=== PATIENT | female | born 1930 | race Caucasian/White ===

== ENCOUNTER 2017-05-04 15:20 | Inpatient (IN) | payer OTHER ==
[~2017-05-04] VITALS: Ht 165.1 cm; Wt 50.0 kg
[~2017-05-04 15:20] MED LIST: ATV5 PO; LOSA1TAB38 PO; METO50TA7 PO; MULT-506 PO
--- NOTE | 2017-05-04 15:54 | EMERGENCY ROOM VISIT NOTE ---
History First contact with patient: 15:32 Chief Complaint: DIZZY Stated Complaint: DIZZINESS, UNSTEADY, HIGH BP History of Present Illness The patient is a 86 year old female who presents to the Emergency Room with complaints of unsteadiness on her feet. Her symptoms started when she woke up on Tuesday. It is worse when she is up and walking around. She feels she is falling more to the left side. She denies any dizziness, light headedness or room spinning. She improves when she sits down and is only occurring when she is walking. She denies any weakness or change in sensation in her upper or lower limbs. She denies any change in her speech, hearing or vision. She is right handed. She feels much increased stress after having a cystoscopy on Tuesday and showing recurrence of her bladder cancer with three small lesions but reports her symptoms did not start until the following day. She denies any diabetes, smoking history, previous stroke or heart attack. She takes lorazepam at night, reports no increase in dose or extra doses of this recently to explain her symptoms. She denies any fevers, chills, recent infections, nasal congestion, cough, shortness of breath, chest pain, palpitations, abdominal pain, nausea, vomiting , diarrhea or constipation. 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 Review of Systems All systems reviewed and otherwise negative other than HPI Past Medical/Surgical History Medical Problems: (1) Bladder tumor (2) BRIANNA (generalized anxiety disorder) (3) HTN (hypertension) Sigmoid volvulus PSHx Sigmoidectomy Family History Patient reports no known family medical history. Social History Smoking Status: Never Smoker Alcohol Use: none Marital Status: Housing Status: lives with significant other Occupation Status: retired Current/Historical Medications Scheduled Losartan Potassium (Cozaar), 100 MG PO QAM Metoprolol Succ (Toprol Xl) (Toprol-Xl), 50 MG PO QAM Scheduled PRN Docusate Sodium (Docusate Sodium), 1 CAP PO BID PRN for Constipation Physical Exam Vital Signs Date Time Temp Pulse Resp B/P (MAP) Pulse Ox O2 Delivery O2 Flow Rate FiO2 05/04/17 17:05 73 05/04/17 16:59 69 18 167/97 95 Room Air 05/04/17 15:28 80 20 182/98 96 Room Air Physical Exam General Appearance: WD/WN, no apparent distress Head: normocephalic, atraumatic Eyes: normal inspection, PERRL, EOMI, sclerae normal, + pertinent finding ( mild droop of left eyelid) ENT: normal ENT inspection (external), pharynx normal (moist mucus membranes ) Neck: supple, no adenopathy, no JVD, no carotid bruits, trachea midline Respiratory/Chest: chest non-tender, lungs clear, normal breath sounds, no respiratory distress, no accessory muscle use Cardiovascular: regular rate, rhythm, no edema, no murmur, normal peripheral pulses Abdomen / GI: normal bowel sounds, non tender, soft, + distended ( chronically) Back: no CVA tenderness Extremities: no calf tenderness, normal capillary refill, no pedal edema Neurologic/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 Hypertension. Loss of balance. COMPARISON STUDY: No priors. TECHNIQUE: Unenhanced axial CT scan of the brain is performed from the vertex to the skull base. CT DOSE: 776.86 mGycm FINDINGS: Brain parenchyma: There are age-related involutional changes noting moderate confluent subcortical and periventricular microangiopathic change. There is no hemorrhage, mass effect, or evidence of acute territorial ischemia by CT criteria. Aviles-white matter is preserved. No extra-axial fluid collection is seen. Ventricles, sulci, cisterns: Prominent secondary to involutional change. Intracranial vasculature: There is atherosclerotic calcification of the cavernous carotid vertebral arteries. Calvarium: Unremarkable. Sinuses and mastoids: The visualized paranasal sinuses are clear. The mastoid air cells are well pneumatized. Orbits: The bony orbits are grossly intact. There are bilateral ocular lens implants. IMPRESSION: Senescent changes as above with no hemorrhage, mass effect, or evidence of acute territorial ischemia by CT criteria. Electronically signed by: Kamar Thomas M.D. 05/04/2017 4:55 PM Dictated Date/Time: 05/04/2017 4:53 PM Laboratory Results 05/04/17 15:40 Red Blood Count 4.45, Mean Corpuscular Volume 94.2, Mean Corpuscular Hemoglobin 31.7, Mean Corpuscular Hemoglobin Concent 33.7, Mean Platelet Volume 10.7, Neutrophils (%) (Auto) 64.8, Lymphocytes (%) (Auto) 24.4, Monocytes (%) (Auto) 9.7, Eosinophils (%) (Auto) 0.2, Basophils (%) (Auto) 0.7, Neutrophils # (Auto) 3.66, Lymphocytes # (Auto) 1.38, Monocytes # (Auto) 0.55, Eosinophils # (Auto) 0.01, Basophils # (Auto) 0.04 05/04/17 15:40 Test 05/04/17 15:40 05/04/17 17:45 White Blood Count 5.65 K/uL (4.8-10.8) Red Blood Count 4.45 M/uL (4.2-5.4) Hemoglobin 14.1 g/dL (12.0-16.0) Hematocrit 41.9 % (37-47) Mean Corpuscular Volume 94.2 fL (80-100) Mean Corpuscular Hemoglobin 31.7 pg (25-34) Mean Corpuscular Hemoglobin Concent 33.7 g/dl (32-36) Platelet Count 205 K/uL (130-400) Mean Platelet Volume 10.7 fL (7.4-10.4) Neutrophils (%) (Auto) 64.8 % Lymphocytes (%) (Auto) 24.4 % Monocytes (%) (Auto) 9.7 % Eosinophils (%) (Auto) 0.2 % Basophils (%) (Auto) 0.7 % Neutrophils # (Auto) 3.66 K/uL (1.4-6.5) Lymphocytes # (Auto) 1.38 K/uL (1.2-3.4) Monocytes # (Auto) 0.55 K/uL (0.11-0.59) Eosinophils # (Auto) 0.01 K/uL (0-0.5) Basophils # (Auto) 0.04 K/uL (0-0.2) RDW Standard Deviation 47.5 fL (36.4-46.3) RDW Coefficient of Variation 13.9 % (11.5-14.5) Immature Granulocyte % (Auto) 0.2 % Immature Granulocyte # (Auto) 0.01 K/uL (0.00-0.02) Anion Gap 8.0 mmol/L (3-11) Estimated GFR () 70.4 Estimated GFR (Non- 60.7 BUN/Creatinine Ratio 17.1 (10-20) Calcium Level 9.0 mg/dl (8.5-10.1) Total Bilirubin 0.3 mg/dl (0.2-1) Aspartate Amino Transf (AST/SGOT) 23 U/L (15-37) Alanine Aminotransferase (ALT/SGPT) 20 U/L (12-78) Alkaline Phosphatase 105 U/L (45-117) Troponin I < 0.015 ng/ml (0-0.045) Total Protein 7.3 gm/dl (6.4-8.2) Albumin 3.3 gm/dl (3.4-5.0) Globulin 4.0 gm/dl (2.5-4.0) Albumin/Globulin Ratio 0.8 (0.9-2) Urine Color YELLOW Urine Appearance CLEAR (CLEAR) Urine pH 7.5 (4.5-7.5) Urine Specific [place] 1.011 (1.000-1.030) Urine Protein NEG (NEG) Urine Glucose (UA) NEG (NEG) Urine Ketones NEG (NEG) Urine Occult Blood NEG (NEG) Urine Nitrite NEG (NEG) Urine Bilirubin NEG (NEG) Urine Urobilinogen NEG (NEG) Urine Leukocyte Esterase NEG (NEG) Urine WBC (Auto) 0 /hpf (0-5) Urine RBC (Auto) 0-4 /hpf (0-4) Urine Hyaline Casts (Auto) 0 /lpf (0-5) Urine Epithelial Cells (Auto) 5-10 /lpf (0-5) Urine Bacteria (Auto) NEG (NEG) Medications Administered Medications (Trade) Dose Ordered Sig/Claude Route Start Time Stop Time Status Last Admin Dose Admin Aspirin (Aspirin Chew) 81 mg ONE STAT PO 05/04/17 17:19 05/04/17 17:24 DC 05/04/17 18:26 81 MG ECG Indication: altered mental status Rate (beats per minute): 67 Rhythm: normal sinus Findings: left axis deviation Comparison ECG Date: 10 Jul 2009 Change: Increase in QRS duration, poor R wave progression and J point elevation in V2 without reciprocal changes ED Course 15:45 Reviewed triage and previous notes. The patient was assessed in room C2. Complete history and physical was performed by myself. 16:[address] Bateman who separately performed history and physical - advised adding troponin to labs 17:19 [facility]A Medical Decision Prior records/ancillary studies reviewed and summarized above. Nursing notes reviewed. Additional history obtained from patient. The patient's history was concerning for loss of balance. Differential diagnosis: Etiologies such as metabolic, infection, hypo/hyperglycemia, electrolyte abnormalities, cardiac sources, intracerebral event, toxicologic, neurologic, as well as others were entertained. Physical examination: As above. ER treatment provided: Aspirin was provided after CT head was obtained On reassessment the patient felt the same - finger-nose past pointing had improved. Diagnostics interpretation by me: ECG: increased QRS duration, J point elevation in V2 without reciprocal changes , new since 2009 and absence of chest pain or shortness of breath The labs showed an elevated glucose 196 (not known to be diabetic) but were otherwise unremarkable with negative troponin Imaging studies: CT head showed no acute changes Urine was negative for infection Consultation: [facility] to concern for [facility]. The case was discussed and diagnostics were reviewed. The patient was evaluated in the ER for further treatment. The patient and her partner were informed about the findings as listed above. All questions were answered and they pleased with the treatment. Medication Reconcilliation Current Medication List: was personally reviewed by me Blood Pressure Screening Patient's blood pressure: Elevated blood pressure refer to hospitalist, not treated in the context of possible stroke Consults Time Called: 17:16 [facility] Call: 17:19 Impression Primary Impression: CVA (cerebral vascular accident) Additional Impression: HTN (hypertension) Departure Information Dispostion Being Evaluated By Hospitalist Condition GOOD Referrals Tonia Carvalho M.D. (PCP) Patient Instructions My [facility] Resident Tracking Resident Involvement: Resident Care Provided Care Provided: Adult ED Problem Qualifiers Primary Impression: CVA (cerebral vascular accident) CVA mechanism: unspecified Qualified Codes: I63.9 - Cerebral infarction, unspecified Additional Impression: HTN (hypertension) Hypertension type: essential hypertension Qualified Codes: I10 - Essential ( primary) hypertension
[2017-05-04 16:18] LABS: BASO % 0.7 %; BASO ABS # 0.04 K/uL (0-0.2); EOS % 0.2 %; EOS ABS # 0.01 K/uL (0-0.5); HEMATOCRIT 41.9 % (37-47); HEMOGLOBIN 14.1 g/dL (12.0-16.0); IG# 0.01 K/uL (0.00-0.02); LYMPH % 24.4 %; LYMPH ABS # 1.38 K/uL (1.2-3.4); MEAN CELL VOLUME 94.2 fL (80-100); MEAN CORPUSCULAR HEMOGLOBIN 31.7 pg (25-34); MEAN CORPUSCULAR HGB CONC 33.7 g/dl (32-36); MEAN PLATELET VOLUME 10.7 fL (7.4-10.4); MONO % 9.7 %; MONO ABS # 0.55 K/uL (0.11-0.59); NEUT % 64.8 %; NEUT ABS # 3.66 K/uL (1.4-6.5); PLATELET COUNT 205 K/uL (130-400); RED CELL DISTRIBUTION WIDTH CV 13.9 % (11.5-14.5); RED CELL DISTRIBUTION WIDTH SD 47.5 fL (36.4-46.3); WHITE BLOOD COUNT 5.65 K/uL (4.8-10.8)
--- NOTE | 2017-05-04 16:25 | DIAGNOSTIC IMAGING REPORT ---
CHEST ONE VIEW PORTABLE CLINICAL HISTORY: loss of balance ?infection dyspnea COMPARISON STUDY: No previous studies for comparison. FINDINGS: Mild emphysematous change. Mild cardia megaly. Diaphragms smooth. Lungs are clear. IMPRESSION: No acute process. Mild emphysematous change. The above report was generated using voice recognition software. It may contain grammatical, syntax or spelling errors. Electronically signed by: Obi Sinclair M.D. 05/04/2017 4:24 PM Dictated Date/Time: 05/04/2017 4:23 PM
[2017-05-04 16:29] LABS: ALBUMIN 3.3 gm/dl (3.4-5.0); ALT/SGPT 20 U/L (12-78); BLOOD UREA NITROGEN 15 mg/dl (7-18); CARBON DIOXIDE 24 mmol/L (21-32); CREATININE 0.86 mg/dl (0.60-1.20); GLUCOSE 196 mg/dl (70-99); POTASSIUM 3.7 mmol/L (3.5-5.1); SODIUM 137 mmol/L (136-145)
[2017-05-04 16:32] LABS: ALKALINE PHOSPHATASE 105 U/L (45-117); AST/SGOT 23 U/L (15-37); TOTAL PROTEIN 7.3 gm/dl (6.4-8.2)
--- NOTE | 2017-05-04 16:56 | DIAGNOSTIC IMAGING REPORT ---
CT SCAN OF THE BRAIN WITHOUT IV CONTRAST CLINICAL HISTORY: Dizziness. Hypertension. Loss of balance. COMPARISON STUDY: No priors. TECHNIQUE: Unenhanced axial CT scan of the brain is performed from the vertex to the skull base. CT DOSE: 776.86 mGycm FINDINGS: Brain parenchyma: There are age-related involutional changes noting moderate confluent subcortical and periventricular microangiopathic change. There is no hemorrhage, mass effect, or evidence of acute territorial ischemia by CT criteria. Aviles-white matter is preserved. No extra-axial fluid collection is seen. Ventricles, sulci, cisterns: Prominent secondary to involutional change. Intracranial vasculature: There is atherosclerotic calcification of the cavernous carotid vertebral arteries. Calvarium: Unremarkable. Sinuses and mastoids: The visualized paranasal sinuses are clear. The mastoid air cells are well pneumatized. Orbits: The bony orbits are grossly intact. There are bilateral ocular lens implants. IMPRESSION: Senescent changes as above with no hemorrhage, mass effect, or evidence of acute territorial ischemia by CT criteria. Electronically signed by: Kamar Thomas M.D. 05/04/2017 4:55 PM Dictated Date/Time: 05/04/2017 4:53 PM
[2017-05-04] MEDS ORDERED: ASPIRIN 81 MG CHEW PO STA (17:19)
[2017-05-04] MEDS ORDERED: ONDANSETRON INJ 2 MG/ML 2 ML VIAL IV PRN (18:30)
[2017-05-04] MEDS ORDERED: ACETAMINOPHEN 325 MG TAB PO PRN (18:30)
[2017-05-04] MEDS ORDERED: PHARMACIST DISCHARGE MED REC CONSULT PRN (18:30)
[2017-05-04] MEDS ORDERED: DOCU100C31 PO (18:34)
[2017-05-04] MEDS ORDERED: CLONIDINE HCL 0.1 MG TAB PO PRN (18:45)
[2017-05-04 19:30] VITALS: BP_SYST 136; BP_SYST 170; BP_DIAS 105; BP_DIAS 109; PULSE 81; TEMP 36.5; TEMP 36.9; O2SAT 96; Ht 165.1 cm; Wt 50.0 kg
--- NOTE | 2017-05-04 19:32 | EMERGENCY ROOM VISIT NOTE ---
ED Visit Note First contact with patient: 15:32 I have personally evaluated this patient examined her and reviewed the pertinent labs and data. I have discussed the case with the Dr. Thapa, the resident physician and agree with the plan. Please refer to the PA note. This patient comes in after feeling weak since Tuesday. On exam, she seems have decreased coordination of her left arm and been having difficulty walking and feels dizzy. EKG does not suggest any ischemic changes. CAT scan of her head is unremarkable. She's had no significant electrode or metabolic abnormality. Given her presentation, IM still concerned about a neurologic process or CVA. She is well outside the window for any TPA. I do think she needs to be admitted for further treatment and evaluation. We have consulted the admitting team.
--- NOTE | 2017-05-04 19:44 | History and Physical ---
History & Physical Date & Time of Service: May 04, 2017 at 19:11 Chief Complaint: Dizziness, Unsteady, High Bp Primary Care Physician: Tonia Carvalho M.D. History of Present Illness Source: patient, spouse (at bedside), clinic records, hospital records This is a 86yo F with a PMH of HTN, anxiety and bladder cancer (s/p complete [place] [facility] [place]) who presents with an unsteady gait x 2 days. Patient was diagnosed with a left trigone tumor with hydroureter in 2015, which was resected in 05/14 and again in 07/16. Per Dr. Rizvi' urology note, patient had a surveillance cystoscopy this past Tuesday (05/02/17) that showed 3-4 small recurrent tumors. Has agreed to move forward with biopsy and fulguration of tumors with Dr. Rizvi. Since finding out the results of the cystoscopy, patient endorses increased anxiety over the results. Is prescribed 0.5mg ativan BID for anxiety but states that she has only been taking it before bed, which she has for years. Yesterday, patient started to feel "unsteady" while walking and noticed herself leaning to the left. States that she required her 's help ambulating yesterday and today in order to avoid falling. Endorses associated lightheadedness but denies headache, facial droop, difficulty with speech, weakness in extremities. Denies personal history of CVA or heart disease. Past Medical/Surgical History Medical Problems: (1) Bladder tumor Permanent Comment: Resected in Jun 2016 but recent surveillance cystoscopy with small recurrent tumors Status: Chronic (2) BRIANNA (generalized anxiety disorder) Status: Chronic (3) HTN (hypertension) Status: Chronic Family History Reports no known history of cancers. Social History Smoking Status: Never Smoker Alcohol Use: none Marital Status: Housing status: lives with significant other Occupational Status: retired Immunizations History of Influenza Vaccine: Yes History of Tetanus Vaccine?: Yes History of Pneumococcal: Yes History of Hepatitis B Vaccine: No Multi-Drug Resistant Organisms History of MDRO: No Allergies Coded Allergies: Penicillins (Verified Allergy, Unknown, INJECTION ONLY - SWELLING, 05/04/17 ) Sulfa Drugs (Verified Allergy, Unknown, UNKNOWN, 05/04/17) Doesn't remember when she took last or what reaction was Lactose Intolerance (GI) (Verified Adverse Reaction, Unknown, G I UPSET,, 05/04/17) Vinegar (Verified Adverse Reaction, Unknown, GI UPSET, 05/04/17) Home Medications Scheduled Losartan Potassium (Cozaar), 100 MG PO QAM Metoprolol Succ (Toprol Xl) (Toprol-Xl), 50 MG PO QAM Scheduled PRN Docusate Sodium (Docusate Sodium), 1 CAP PO BID PRN for Constipation Review of Systems Ten systems reviewed and negative except as noted in the HPI. Physical Exam Vital Signs Date Time Temp Pulse Resp B/P (MAP) Pulse Ox O2 Delivery O2 Flow Rate FiO2 05/04/17 18:30 36.9 05/04/17 17:05 73 05/04/17 16:59 69 18 167/97 95 Room Air 05/04/17 15:28 80 20 182/98 96 Room Air General Appearance: no apparent distress, + mild distress (anxious appearing) Head: normocephalic, atraumatic Eyes: normal inspection, PERRL, sclerae normal ENT: normal ENT inspection, TMs normal (Ceruman impaction of L ear. 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, no motor/sensory deficits (Full ROM of all 4 extremities, 5/5 NISHA, normal [id number] and rapid alternating movements ), alert, normal mood/affect, oriented x 3, + abnormal gait (Left leaning and unsteady ) Skin: normal color, warm/dry Diagnostics Laboratory Results Results Past 24 Hours Test 05/04/17 15:40 05/04/17 17:45 Range/Units White Blood Count 5.65 4.8-10.8 K/uL Red Blood Count 4.45 4.2-5.4 M/uL Hemoglobin 14.1 12.0-16.0 g/dL Hematocrit 41.9 37-47 % Mean Corpuscular Volume 94.2 80-100 fL Mean Corpuscular Hemoglobin 31.7 25-34 pg Mean Corpuscular Hemoglobin Concent 33.7 32-36 g/dl Platelet Count 205 130-400 K/uL Mean Platelet Volume 10.7 7.4-10.4 fL Neutrophils (%) (Auto) 64.8 % Lymphocytes (%) (Auto) 24.4 % Monocytes (%) (Auto) 9.7 % Eosinophils (%) (Auto) 0.2 % Basophils (%) (Auto) 0.7 % Neutrophils # (Auto) 3.66 1.4-6.5 K/uL Lymphocytes # (Auto) 1.38 1.2-3.4 K/uL Monocytes # (Auto) 0.55 0.11-0.59 K/uL Eosinophils # (Auto) 0.01 0-0.5 K/uL Basophils # (Auto) 0.04 0-0.2 K/uL RDW Standard Deviation 47.5 36.4-46.3 fL RDW Coefficient of Variation 13.9 11.5-14.5 % Immature Granulocyte % (Auto) 0.2 % Immature Granulocyte # (Auto) 0.01 0.00-0.02 K/uL Sodium Level 137 136-145 mmol/L Potassium Level 3.7 3.5-5.1 mmol/L Chloride Level 105 98-107 mmol/L Carbon Dioxide Level 24 21-32 mmol/L Anion Gap 8.0 3-11 mmol/L Blood Urea Nitrogen 15 7-18 mg/dl Creatinine 0.86 0.60-1.20 mg/dl Estimated GFR () 70.4 Estimated GFR (Non- 60.7 BUN/Creatinine Ratio 17.1 10-20 Random Glucose 196 70-99 mg/dl Calcium Level 9.0 8.5-10.1 mg/dl Total Bilirubin 0.3 0.2-1 mg/dl Aspartate Amino Transf (AST/SGOT) 23 15-37 U/L Alanine Aminotransferase (ALT/SGPT) 20 12-78 U/L Alkaline Phosphatase 105 45-117 U/L Troponin I < 0.015 0-0.045 ng/ml Total Protein 7.3 6.4-8.2 gm/dl Albumin 3.3 3.4-5.0 gm/dl Globulin 4.0 2.5-4.0 gm/dl Albumin/Globulin Ratio 0.8 0.9-2 Urine Color YELLOW Urine Appearance CLEAR CLEAR Urine pH 7.5 4.5-7.5 Urine Specific [place] 1.011 1.000-1.030 Urine Protein NEG NEG Urine Glucose (UA) NEG NEG Urine Ketones NEG NEG Urine Occult Blood NEG NEG Urine Nitrite NEG NEG Urine Bilirubin NEG NEG Urine Urobilinogen NEG NEG Urine Leukocyte Esterase NEG NEG Urine WBC (Auto) 0 0-5 /hpf Urine RBC (Auto) 0-4 0-4 /hpf Urine Hyaline Casts (Auto) 0 0-5 /lpf Urine Epithelial Cells (Auto) 5-10 0-5 /lpf Urine Bacteria (Auto) NEG NEG Diagnostic Radiology CT head: IMPRESSION: Senescent changes as above with no hemorrhage, mass effect , or evidence of acute territorial ischemia by CT criteria. CXR: IMPRESSION: No acute process. Mild emphysematous change. EKG Normal sinus rhythm Left axis deviation Non-specific intra-ventricular conduction block (QRS interval slightly prolonged at 130 ms) Abnormal ECG When compared with ECG of 10-JUL-2009 16:08, Questionable change in QRS duration Impression Assessment and Plan This is a 86yo F with a PMH of HTN, anxiety and bladder cancer (s/p complete resection @ [facility] [place] in 07[place]) who presents with an unsteady gait x 2 days. Ataxic gait: -Left leaning, unsteadiness x 2 days -No other neuro abnormalities -Fall precautions -CT head negative -Rule out acute CVA: -MRI brain without contrast -Carotid dopplers -Neuro consulted. Appreciate recs -Given aspirin in ER -Fasting lipid panel, hgb a1c in AM -Initiate statin if indicated -Neuro checks Q4 -PT/OT/speech eval Bladder cancer: -S/p complete resection @ [facility] [place] in 07/16 -Recent surveillance cysto (05/02/17) with Dr. Rizvi revealed 3-4 small recurrent tumors -Planning on a biopsy with fulguration as well as staging CT scan HTN: -Elevated likely 2/2 anxiety -Cont home dose metoprolol and losartan -Clonidine 0.1mg Q8 PRN for SBP > 170 -Monitor BRIANNA: -Held home dose ativan in setting of ataxia, unsteady gait DVT Ppx: SCDs (held off on pharmacologic VTE due to fall risk; please initiate tomorrow) Code status: DNR as per my discussion with patient and PCP: Deven Dispo: Discharge planning per stroke set protocol Patient seen in collaboration with Dr. Ramos. Please see addendum. ATTENDING ADDENDUM care coordinated with SERENITY Quinonez please refer to her notes for full details, I agree with her notes patient seen and examined, records reviewed by myself as well on exam, patient seen laying in bed, just cam from the MRI alert, bright, in good spirits denies focal neuro symptoms no chest pain, dyspnea, dizziness no other symptoms VS noted and reviewed oriented x3 , not in distress, speaks in sentences with no effort nor accessory muscle use normal rate, regular rhythm, no murmurs clear breath sounds bilaterally non distended, soft, nontender no bipedal edema, erythema, warmth CN 2-12 grossly intact, motor 5/5 on all ext, sensation 100% on all ext WBC 5.6 Hg [address] head no acute process ASSESSMENT/PLAN> EPISODE OF ATAXIA, R/O ACUTE CVA - CT head negative Brain MRI , Carotid US ordered - already received ASA in the ER Neurology consulted HYPERTENSION - continue Losartan, Metoprolol other diagnoses and plan of care as per SERENITY Quinonez's notes Octaviano Ramos MD Level of Care Telemetry Resuscitation Status DO NOT RESUSCITATE VTE Prophylaxis VTE Risk Assessment Done? Y/N: Yes Risk Level: Moderate Given or contraindicated: SCD's
--- NOTE | 2017-05-04 22:19 | DIAGNOSTIC IMAGING REPORT ---
ULTRASOUND OF THE CAROTID ARTERIES CLINICAL HISTORY: Strokelike symptoms. COMPARISON STUDY: No priors. TECHNIQUE: Real-time, grayscale, and color Doppler sonography of the carotid arteries is performed. Images are reviewed in the transverse and longitudinal planes. FINDINGS: Blood pressure in the right arm measures 134/77 and blood pressure in the left arm measures 146/81. The carotid arteries are patent bilaterally and demonstrate antegrade flow. There is no significant atherosclerotic plaque identified. Normal doppler arterial waveforms are seen throughout. Velocity measurements are listed below. Common carotid peak systolic velocity (cm/sec): RIGHT: 123 LEFT: 88 ICA proximal peak systolic velocity (cm/sec): RIGHT: 41 LEFT: 37 ICA mid peak systolic velocity (cm/sec): RIGHT: 62 LEFT: 44 ICA distal peak systolic velocity (cm/sec): RIGHT: 44 LEFT: 54 ICA/CC peak systolic ratio: RIGHT: 0.5 LEFT: 0.6 Antegrade flow was shown in the vertebral arteries. The external carotid arteries are patent. IMPRESSION: 1. There is no sonographic evidence of hemodynamically significant stenosis in the right or left carotid arterial system. 2. Antegrade flow is shown in the vertebral arteries. Electronically signed by: Kamar Thomas M.D. 05/04/2017 10:18 PM Dictated Date/Time: 05/04/2017 10:17 PM
--- NOTE | 2017-05-04 22:56 | DIAGNOSTIC IMAGING REPORT ---
MRI OF THE BRAIN WITHOUT IV CONTRAST CLINICAL HISTORY: Strokelike symptoms. COMPARISON STUDY: CT of the brain dated 05/04/2017. TECHNIQUE: MRI of the brain was performed utilizing various T1 and T2-weighted sequences in the axial, sagittal, and coronal planes. IV contrast was not administered for this examination. FINDINGS: Brain parenchyma: There are age-related involutional changes noting advanced confluent subcortical and periventricular microangiopathic disease. There is no hemorrhage or mass effect. There is no restricted diffusion to suggest acute ischemia. Aviles-white matter differentiation is preserved. No extra-axial fluid collection is seen. The cerebellar tonsils are normal in configuration. Ventricles, sulci, and cisterns: Prominent secondary to involutional change. Pituitary and sella: Unremarkable. Intracranial vasculature: Normal flow voids are maintained at the skull base. Orbits: The bony orbits are grossly intact. Orbital contents are normal in appearance noting bilateral ocular lens implants. Sinuses and mastoids: Clear. Calvarium: Unremarkable. Cervical cord: Partially visualized cervical spinal cord is normal in morphology and signal intensity. IMPRESSION: Senescent changes as above with no acute intracranial abnormality. Electronically signed by: Kamar Thomas M.D. 05/04/2017 10:55 PM Dictated Date/Time: 05/04/2017 10:53 PM
[2017-05-05] VITALS (10 sets, daily range): BP systolic 111–174; BP diastolic 73–93; PULSE 71–86; TEMP 36.3–36.7; O2SAT 93–97
[2017-05-05 07:16] LABS: HEMOGLOBIN A1C 5.7 % (4.5-5.6)
[2017-05-05 07:51] LABS: BASO % 0.7 %; BASO ABS # 0.04 K/uL (0-0.2); EOS % 1.1 %; EOS ABS # 0.07 K/uL (0-0.5); HEMATOCRIT 41.3 % (37-47); HEMOGLOBIN 13.9 g/dL (12.0-16.0); IG# 0.01 K/uL (0.00-0.02); LYMPH % 43.2 %; LYMPH ABS # 2.65 K/uL (1.2-3.4); MEAN CORPUSCULAR HEMOGLOBIN 31.3 pg (25-34); MEAN CORPUSCULAR HGB CONC 33.7 g/dl (32-36); MEAN PLATELET VOLUME 10.4 fL (7.4-10.4); MONO % 10.1 %; MONO ABS # 0.62 K/uL (0.11-0.59); NEUT % 44.7 %; NEUT ABS # 2.74 K/uL (1.4-6.5); PLATELET COUNT 206 K/uL (130-400); RED CELL DISTRIBUTION WIDTH CV 13.8 % (11.5-14.5); RED CELL DISTRIBUTION WIDTH SD 47.4 fL (36.4-46.3); WHITE BLOOD COUNT 6.13 K/uL (4.8-10.8)
[2017-05-05] MEDS: ASPIRIN 81 MG ECTAB PO SCH (08:01)
[2017-05-05] MEDS: METOPROLOL SUCC 50MG EXT REL TAB PO SCH (08:02)
[2017-05-05] MEDS: LOSARTAN POTASSIUM 50 MG TAB PO SCH (08:02)
[2017-05-05 08:18] LABS: CREATININE 0.72 mg/dl (0.60-1.20); POTASSIUM 3.6 mmol/L (3.5-5.1)
[2017-05-05] MEDS ORDERED: LORAZEPAM 0.5 MG TAB PO PRN (18:00)
--- NOTE | 2017-05-05 18:10 | Progress Note ---
Internal Med Progress Note Date of Service: May 05, 2017. Provider Documentation: SUBJECTIVE: sebastian says since yesterday she was feeling dizzy and was leaning to left side while ambulating recently she found her bladder tumor has recurrence which let her down says she did not slept last night and asking some med to help sleep- she is used to Ativan but wants something less stronger as she thinks ativan was causing current problem denies any chest pain or sob no cough no fevers OBJECTIVE: Vital Signs-as noted below Exam: General-alert and awake and oriented ENT-normal hearing Neck-no neck masses Lungs-cta b/l no wheezing no rhonchi Heart-s1 and s2 heard regular rate and rhythm no murmurs Abdomen-soft BS present non tender no distension Extremities-no edema no erythema Neuro-alert and awake moves extremities Lab data as noted below. ASSESSMENT & PLAN: This is a 86yo F with a PMH of HTN, anxiety and bladder cancer [place] [facility] [place] who presents with an unsteady gait x 2 days. Ataxic gait: Left leaning, unsteadiness x [address] head negative MRI head unremarkable orthostatics carotid doppler unremarkable await echo currently stable pt/ot await neuro inputs Bladder cancer: As pr h and P"S/p [place] [facility] [place] Recent surveillance cysto (05/02/17) with Dr. Rizvi revealed 3-4 small recurrent tumors Planning on a biopsy with fulguration as well as staging CT scan" followup with urology HTN: on home dose metoprolol and losartan Clonidine 0.1mg Q8 PRN for SBP > 170 will Monitor BRIANNA: at admission Held home dose ativan in setting of ataxia, unsteady gait will place on ativan prn for ow and monitor DVT Ppx: SCDs Code status: DNR as per H and P. PCP: Mainali Dispo:to be determined Vital Signs: Date Time Temp Pulse Resp B/P (MAP) Pulse Ox O2 Delivery O2 Flow Rate FiO2 05/05/17 16:27 94 Room Air 05/05/17 13:39 36.7 86 18 145/88 (107) 94 Room Air 05/05/17 12:00 Room Air 05/05/17 11:59 36.5 77 20 148/80 (102) 96 Room Air 05/05/17 11:39 36.7 71 16 93 05/05/17 08:04 36.7 71 16 154/93 (113) 93 Room Air 05/05/17 08:00 Room Air 05/05/17 05:21 150/87 (108) 05/05/17 04:24 36.5 74 15 174/88 (116) 97 Room Air 05/05/17 04:00 Room Air 05/05/17 00:00 36.6 74 157/87 (110) 94 Room Air 05/05/17 00:00 94 Room Air 05/04/17 19:30 36.5 81 20 170/105 (126) 96 Room Air 05/04/17 19:30 36.9 16 136/109 Room Air 05/04/17 19:17 86 16 136/109 96 05/04/17 18:30 36.9 Lab Results: Results Past 24 Hours Test 05/05/17 07:38 05/05/17 17:04 Range/Units White Blood Count 6.13 4.8-10.8 K/uL Red Blood Count 4.44 4.2-5.4 M/uL Hemoglobin 13.9 12.0-16.0 g/dL Hematocrit 41.3 37-47 % Mean Corpuscular Volume 93.0 80-100 fL Mean Corpuscular Hemoglobin 31.3 25-34 pg Mean Corpuscular Hemoglobin Concent 33.7 32-36 g/dl Platelet Count 206 130-400 K/uL Mean Platelet Volume 10.4 7.4-10.4 fL Neutrophils (%) (Auto) 44.7 % Lymphocytes (%) (Auto) 43.2 % Monocytes (%) (Auto) 10.1 % Eosinophils (%) (Auto) 1.1 % Basophils (%) (Auto) 0.7 % Neutrophils # (Auto) 2.74 1.4-6.5 K/uL Lymphocytes # (Auto) 2.65 1.2-3.4 K/uL Monocytes # (Auto) 0.62 0.11-0.59 K/uL Eosinophils # (Auto) 0.07 0-0.5 K/uL Basophils # (Auto) 0.04 0-0.2 K/uL RDW Standard Deviation 47.4 36.4-46.3 fL RDW Coefficient of Variation 13.8 11.5-14.5 % Immature Granulocyte % (Auto) 0.2 % Immature Granulocyte # (Auto) 0.01 0.00-0.02 K/uL Sodium Level 141 136-145 mmol/L Potassium Level 3.6 3.5-5.1 mmol/L Chloride Level 108 98-107 mmol/L Carbon Dioxide Level 29 21-32 mmol/L Anion Gap 5.0 3-11 mmol/L Blood Urea Nitrogen 11 7-18 mg/dl Creatinine 0.72 0.60-1.20 mg/dl Est Creatinine Clear Calc Drug Dose 43.9 ml/min Estimated GFR () 87.3 Estimated GFR (Non- 75.3 BUN/Creatinine Ratio 14.9 10-20 Random Glucose 86 70-99 mg/dl Calcium Level 9.0 8.5-10.1 mg/dl Triglycerides Level 56 0-150 mg/dl Cholesterol Level 177 0-200 mg/dl HDL Cholesterol 70 mg/dl LDL Cholesterol, Calculated 96 mg/dl VLDL Cholesterol, Calculated 11 mg/dl Cholesterol/HDL Ratio 2.5
[2017-05-05] MEDS ORDERED: TRAZODONE HCL 50 MG TAB PO ONE (19:30)
--- NOTE | 2017-05-05 23:06 | NEUROLOGY CONSULTATION ---
DATE OF CONSULTATION: 05/05/2017 REASON FOR CONSULTATION: Unsteadiness. HISTORY OF PRESENT ILLNESS: The patient is an 86-year-old with hypertension, anxiety, bladder cancer, status post resection, presented with an unsteady gait for at least 1-day duration. The patient has a history of bladder tumor with hydroureter in 2015, which was resected again on 07/19/2016. The patient had surveillance cystoscopy in the office on 05/02/2017 that showed 3-4 small recurrent tumors. The patient underwent, I believe, fulguration of the tumor at that time but was very upset by the information and felt extremely anxious. That evening she felt extremely tired, she took Ativan that evening, in the morning felt unsteady as if she could fall to the left. This persisted for at least 1 day, if not 2 days. There was no hetal vertigo, nausea, vomiting, unilateral weakness, numbness, dysarthria, dysphasia. There was no change in vision. She had some mild pain above the left eye. She denied any otologic symptoms such as sudden ear pain, ringing, hearing loss or pressure. She denies a prior history of vertigo. She had probably not been eating or drinking well. She indicates that she had lost 30 pounds over the last 3 months. She denies any numbness or tingling in the lower extremities. She has not recently been ill, had any head or neck trauma. It is unclear if she may have taken b.i.d. dosing of lorazepam rather than daily dosing. That having been said, last evening she received no benzodiazepines and had marked difficulty with sleeping and anxiety. The patient ambulates normally at home with a cane. PAST MEDICAL HISTORY: As above, hypertension. SURGICAL HISTORY: Bladder tumor fulguration. SOCIAL HISTORY: Nonsmoker, nondrinker. ALLERGIES: PENICILLIN, SULFA, LACTOSE, VINEGAR. HOME MEDICATIONS: Losartan, metoprolol, docusate and lorazepam. LABORATORY DATA: Initial chemistry notable for a random glucose of 196. Transaminases are normal. White count 5.65, H&H 14 and 41, platelets 205. Urinalysis notable for 5-10 epithelial cells. Electrocardiogram, normal sinus rhythm, left axis deviation, nonspecific intraventricular conduction block. Compared to EKG of 06/2009, QRS duration has increased. Head CT, chronic vascular changes. MRI brain, no acute abnormality. Carotid ultrasound, no hemodynamically significant stenosis, antegrade flow in both vertebral arteries. PHYSICAL EXAMINATION: VITAL SIGNS: 36.5, 74, 15, 178/88 with O2 sat 97%. GENERAL: The patient is awake and alert, oriented to hospital, month, year. No right/left confusion or aphasia. Fund of knowledge is normal. Spontaneous speech and language are normal as well. NECK: There are no carotid bruits. HEART: No heart murmurs. Heart is regular rate and rhythm. LUNGS: Clear. NEUROLOGIC: Pupils are equal. Optic nerves unremarkable. Normal kline, motility. There is a left ptosis which the patient indicates is chronic. There is normal facial symmetry. Tongue is midline. Motor 5/5. No drift. Normal rapid alternating movements. Symmetric reflexes. Reduced ankle jerks, downgoing toes. Hdsamo-jd-ghob is normal. Ecen-mn-ujsr is normal. There is decreased vibration sense to the level of the ankle and there may be above the ankle level to temperature. Gait is orthopedic, mildly unsteady, although not unilaterally so. Romberg is negative. Provocative head maneuvers are negative. IMPRESSION: This is an 86-year-old with a sense of imbalance with a tendency to veer to the left for 1-2 days. Imaging not showing a central etiology. I agree that central etiology is unlikely. I was unable to provoke any evidence of positional vertigo. I wonder if this could have represented a medication effect related to benzodiazepines. The patient reports decreased oral intake and there could be a component of dehydration. I have recommended checking orthostatic blood pressures. The patient appears to have some mild neuropathic process for which I have ordered some blood work including B12, folate, RPR. This could contribute to some general unsteadiness, although should not cause any unilateral tendency to fall, and finally although the workup has been unremarkable, if there is not any contraindication, antiplatelet therapy with aspirin is reasonable. We will sign off. Please re-consult if needed. ANGEL
[2017-05-06] MEDS: LOSARTAN POTASSIUM 50 MG TAB PO SCH (07:35)
[2017-05-06] MEDS: METOPROLOL SUCC 50MG EXT REL TAB PO SCH (07:36)
[2017-05-06] MEDS: ASPIRIN 81 MG ECTAB PO SCH (07:37)
[2017-05-06 07:46] VITALS: BP_SYST 154; BP_SYST 156; BP_SYST 171; BP_DIAS 101; BP_DIAS 93; BP_DIAS 97; PULSE 77; PULSE 81; PULSE 82; TEMP 36.3; O2SAT 92
[2017-05-06 08:00] VITALS: O2SAT 92
[2017-05-06 08:04] LABS: BASO % 0.7 %; BASO ABS # 0.05 K/uL (0-0.2); EOS % 1.3 %; HEMOGLOBIN 15.8 g/dL (12.0-16.0); IG# 0.02 K/uL (0.00-0.02); LYMPH % 47.2 %; LYMPH ABS # 3.52 K/uL (1.2-3.4); MEAN CELL VOLUME 92.7 fL (80-100); MEAN CORPUSCULAR HEMOGLOBIN 31.9 pg (25-34); MEAN CORPUSCULAR HGB CONC 34.3 g/dl (32-36); MEAN PLATELET VOLUME 10.8 fL (7.4-10.4); MONO % 8.8 %; MONO ABS # 0.66 K/uL (0.11-0.59); NEUT % 41.7 %; NEUT ABS # 3.11 K/uL (1.4-6.5); PLATELET COUNT 234 K/uL (130-400); RED CELL DISTRIBUTION WIDTH SD 47.4 fL (36.4-46.3); WHITE BLOOD COUNT 7.46 K/uL (4.8-10.8)
[2017-05-06 08:40] LABS: CALCIUM 9.6 mg/dl (8.5-10.1); CREATININE 1.03 mg/dl (0.60-1.20); POTASSIUM 3.7 mmol/L (3.5-5.1)
[2017-05-06] MEDS ORDERED: MAGNESIUM HYDROXIDE SUSP 30 ML UDC PO PRN (11:15)
[2017-05-06 11:25] VITALS: BP 101/61; PULSE 77; TEMP 36.5; O2SAT 94
[2017-05-06 15:50] VITALS: BP 115/76; PULSE 80; TEMP 36.3; O2SAT 94
--- NOTE | 2017-05-06 18:37 | Progress Note ---
Internal Med Progress Note Date of Service: May 06, 2017. Provider Documentation: SUBJECTIVE: resting comfortably some what wobbly ambulating in room afebrile could not sleep well last night has constipation likes to go home OBJECTIVE: Vital Signs-as noted below Exam: General-alert and awake and oriented ENT-normal hearing Neck-no neck masses Lungs-cta b/l no wheezing no rhonchi Heart-s1 and s2 heard regular rate and rhythm no murmurs Abdomen-soft BS present non tender no distension Extremities-no edema no erythema Neuro-alert and awake moves extremities Lab data as noted below. ASSESSMENT & PLAN: This is a 86yo F with a PMH of HTN, anxiety and bladder [place] [facility] [place] who presents with an unsteady gait x 2 days. Ataxic gait: Left leaning, unsteadiness x [address] head negative MRI head unremarkable orthostatics carotid doppler unremarkable vitamin b12 normal currently stable appreciate neuro inputs pt/ot recommends rehab Bladder cancer: As pr h and P"S/[place] [facility] [place] Recent surveillance cysto (05/02/17) with Dr. Rizvi revealed 3-4 small recurrent tumors Planning on a biopsy with fulguration as well as staging CT scan" followup with urology HTN: on home dose metoprolol and losartan Clonidine 0.1mg Q8 PRN for SBP > 170 will Monitor BRIANNA: at admission Held home dose ativan in setting of ataxia, unsteady gait not sleeping and taking Ativan for very long time will restart Ativan 0.5mg q hs DVT Ppx: SCDs Code status: DNR as per H and P. PCP: Mainali Dispo: pt/ot social service for d/c planning Vital Signs: Date Time Temp Pulse Resp B/P (MAP) Pulse Ox O2 Delivery O2 Flow Rate FiO2 05/06/17 16:20 Room Air 05/06/17 15:50 36.3 80 18 115/76 (89) 94 Room Air 05/06/17 11:25 36.5 77 16 101/61 (74) 94 05/06/17 08:00 92 Room Air 05/06/17 07:46 36.3 82 18 171/101 (124) 92 77 154/97 (116) 81 156/93 (114) 05/06/17 00:00 Room Air 05/05/17 23:56 36.5 71 18 111/73 (86) 96 Room Air 05/05/17 20:00 Room Air 05/05/17 19:24 36.3 86 18 122/80 (94) 94 Room Air Lab Results: Results Past 24 Hours Test 05/06/17 07:53 Range/Units White Blood Count 7.46 4.8-10.8 K/uL Red Blood Count 4.96 4.2-5.4 M/uL Hemoglobin 15.8 12.0-16.0 g/dL Hematocrit 46.0 37-47 % Mean Corpuscular Volume 92.7 80-100 fL Mean Corpuscular Hemoglobin 31.9 25-34 pg Mean Corpuscular Hemoglobin Concent 34.3 32-36 g/dl Platelet Count 234 130-400 K/uL Mean Platelet Volume 10.8 7.4-10.4 fL Neutrophils (%) (Auto) 41.7 % Lymphocytes (%) (Auto) 47.2 % Monocytes (%) (Auto) 8.8 % Eosinophils (%) (Auto) 1.3 % Basophils (%) (Auto) 0.7 % Neutrophils # (Auto) 3.11 1.4-6.5 K/uL Lymphocytes # (Auto) 3.52 1.2-3.4 K/uL Monocytes # (Auto) 0.66 0.11-0.59 K/uL Eosinophils # (Auto) 0.10 0-0.5 K/uL Basophils # (Auto) 0.05 0-0.2 K/uL RDW Standard Deviation 47.4 36.4-46.3 fL RDW Coefficient of Variation 14.0 11.5-14.5 % Immature Granulocyte % (Auto) 0.3 % Immature Granulocyte # (Auto) 0.02 0.00-0.02 K/uL Sodium Level 138 136-145 mmol/L Potassium Level 3.7 3.5-5.1 mmol/L Chloride Level 105 98-107 mmol/L Carbon Dioxide Level 27 21-32 mmol/L Anion Gap 6.0 3-11 mmol/L Blood Urea Nitrogen 23 7-18 mg/dl Creatinine 1.03 0.60-1.20 mg/dl Est Creatinine Clear Calc Drug Dose 29.6 ml/min Estimated GFR () 56.6 Estimated GFR (Non- 48.8 BUN/Creatinine Ratio 22.7 10-20 Random Glucose 86 70-99 mg/dl Calcium Level 9.6 8.5-10.1 mg/dl
[2017-05-06 19:46] VITALS: BP 111/78; PULSE 80; TEMP 36.9; O2SAT 93
[2017-05-06] MEDS ORDERED: LORAZEPAM 0.5 MG TAB PO SCH (21:00)
[2017-05-06] MEDS ORDERED: DOCUSATE SODIUM/SENNA 50/8.6MG TAB PO SCH (21:00)
[2017-05-06 23:34] VITALS: BP 130/89; PULSE 86; TEMP 36.6; O2SAT 94
[2017-05-07 07:40] VITALS: BP 128/86; PULSE 67; TEMP 36.5; O2SAT 97
[2017-05-07 07:43] LABS: BASO % 0.6 %; BASO ABS # 0.04 K/uL (0-0.2); EOS % 2.3 %; EOS ABS # 0.15 K/uL (0-0.5); HEMATOCRIT 40.3 % (37-47); HEMOGLOBIN 13.6 g/dL (12.0-16.0); IG# 0.02 K/uL (0.00-0.02); LYMPH % 46.5 %; LYMPH ABS # 3.01 K/uL (1.2-3.4); MEAN CORPUSCULAR HEMOGLOBIN 31.1 pg (25-34); MEAN CORPUSCULAR HGB CONC 33.7 g/dl (32-36); MEAN PLATELET VOLUME 10.9 fL (7.4-10.4); MONO % 10.4 %; MONO ABS # 0.67 K/uL (0.11-0.59); NEUT % 39.9 %; NEUT ABS # 2.58 K/uL (1.4-6.5); PLATELET COUNT 198 K/uL (130-400); RED CELL DISTRIBUTION WIDTH CV 13.8 % (11.5-14.5); RED CELL DISTRIBUTION WIDTH SD 47.2 fL (36.4-46.3); WHITE BLOOD COUNT 6.47 K/uL (4.8-10.8)
[2017-05-07 08:10] LABS: CALCIUM 8.8 mg/dl (8.5-10.1); CREATININE 0.81 mg/dl (0.60-1.20); POTASSIUM 3.7 mmol/L (3.5-5.1)
[2017-05-07 10:00] VITALS: O2SAT 92
[2017-05-07] MEDS: ASPIRIN 81 MG ECTAB PO SCH (10:31)
[2017-05-07] MEDS: METOPROLOL SUCC 50MG EXT REL TAB PO SCH (10:31)
[2017-05-07] MEDS: LOSARTAN POTASSIUM 50 MG TAB PO SCH (10:31)
[2017-05-07] MEDS ORDERED: LORA-741 PO ×4 (12:47→12:50)
--- NOTE | 2017-05-07 12:53 | Discharge Instructions ---
Discharge Instructions Date of Service May 07, 2017. Admission Reason for Admission: Ataxic Gait, Lightheadedness Discharge Discharge Diagnosis / Problem: ataxia, dizzy Discharge Goals Goal(s): Decrease discomfort, Improve function Activity Recommendations Activity Limitations: resume your previous activity (as tolerated) . Instructions / Follow-Up Instructions / Follow-Up FOLLOWUP WITH FAMILY DOCTOR Tonia Zuñiga ON Apr AT 12:45PM( IF NOT GOING TO REHAB. IF GOING TO REHAB FOLLOW WITH FAMILY DOCTOR WITHIN A WEEK OF DISCHARGE FROM REHAB) ADVISE FOR REHAB Current Hospital Diet Patient's current hospital diet: AHA Diet (Heart Healthy), Low Lactose Diet Discharge Diet Recommended Diet: AHA Diet (Heart Healthy), Low Lactose Diet (SOFT DIET. ASPIRATION PRECAUTIONS) Pending Studies Studies pending at discharge: no Laboratory Results Hemoglobin A1c Test 05/04/17 15:40 Range/Units Estimated Average Glucose 117 mg/dl Hemoglobin A1c 5.7 H 4.5-5.6 % Lipid Panel Test 05/05/17 07:38 Range/Units Triglycerides Level 56 0-150 mg/dl Cholesterol Level 177 0-200 mg/dl HDL Cholesterol 70 mg/dl Cholesterol/HDL Ratio 2.5 LDL Cholesterol, Calculated 96 mg/dl Medical Emergencies . Who to Call and When: Medical Emergencies: If at any time you feel your situation is an emergency, please call 911 immediately. . Non-Emergent Contact Non-Emergency issues call your: Primary Care Provider . . "Provider Documentation" section prepared by Austyn Headley. . VTE Core Measure Inpt VTE Proph given/why not?: SCD's
[2017-05-07 13:12] VITALS: BP 128/86; PULSE 67; TEMP 36.5; O2SAT 92
--- NOTE | 2017-05-07 18:36 | Progress Note ---
Internal Med Progress Note Date of Service: May 07, 2017. Provider Documentation: SUBJECTIVE: sitting on the chair comfortably slept after midnight moved bowels today afebrile feeling better wants to go home first before going to rehab OBJECTIVE: Vital Signs-as noted below Exam: General-alert and awake and oriented ENT-normal hearing Neck-no neck masses Lungs-cta b/l no wheezing no rhonchi Heart-s1 and s2 heard regular rate and rhythm no murmurs Abdomen-soft BS present non tender no distension Extremities-no edema no erythema Neuro-alert and awake moves extremities Lab data as noted below. ASSESSMENT & PLAN: This is a 86yo F with a PMH of HTN, anxiety and bladder cancer (s/p complete [place] [facility] [place] who presents with an unsteady gait x 2 days. Ataxic gait: Left leaning, unsteadiness x [address] head negative MRI head unremarkable orthostatics carotid doppler unremarkable vitamin b12 normal currently stable appreciate neuro inputs pt/ot recommends rehab plan to go home first and then to rehab Bladder cancer: As pr h and P"S/p complete [place] [facility] [place] Recent surveillance cysto (05/02/17) with Dr. Rizvi revealed 3-4 small recurrent tumors Planning on a biopsy with fulguration as well as staging CT scan" followup with urology HTN: on home dose metoprolol and losartan Clonidine 0.1mg Q8 PRN for SBP > 170 f/u with pcp BRIANNA: at admission Held home dose ativan in setting of ataxia, unsteady gait not sleeping and taking Ativan for very long time will restart Ativan 0.5mg q hs prn. f/u with pcp discharged home with plan for rehab Vital Signs: Date Time Temp Pulse Resp B/P (MAP) Pulse Ox O2 Delivery O2 Flow Rate FiO2 05/07/17 13:12 36.5 67 18 92 Room Air 05/07/17 10:00 92 Room Air 05/07/17 07:40 36.5 67 18 128/86 (100) 97 Room Air 05/07/17 00:00 Room Air 05/06/17 23:34 36.6 86 20 130/89 (103) 94 Room Air 05/06/17 19:46 36.9 80 18 111/78 (89) 93 Room Air Lab Results: Results Past 24 Hours Test 12/9/17 07:01 Range/Units White Blood Count 6.47 4.8-10.8 K/uL Red Blood Count 4.38 4.2-5.4 M/uL Hemoglobin 13.6 12.0-16.0 g/dL Hematocrit 40.3 37-47 % Mean Corpuscular Volume 92.0 80-100 fL Mean Corpuscular Hemoglobin 31.1 25-34 pg Mean Corpuscular Hemoglobin Concent 33.7 32-36 g/dl Platelet Count 198 130-400 K/uL Mean Platelet Volume 10.9 7.4-10.4 fL Neutrophils (%) (Auto) 39.9 % Lymphocytes (%) (Auto) 46.5 % Monocytes (%) (Auto) 10.4 % Eosinophils (%) (Auto) 2.3 % Basophils (%) (Auto) 0.6 % Neutrophils # (Auto) 2.58 1.4-6.5 K/uL Lymphocytes # (Auto) 3.01 1.2-3.4 K/uL Monocytes # (Auto) 0.67 0.11-0.59 K/uL Eosinophils # (Auto) 0.15 0-0.5 K/uL Basophils # (Auto) 0.04 0-0.2 K/uL RDW Standard Deviation 47.2 36.4-46.3 fL RDW Coefficient of Variation 13.8 11.5-14.5 % Immature Granulocyte % (Auto) 0.3 % Immature Granulocyte # (Auto) 0.02 0.00-0.02 K/uL Sodium Level 140 136-145 mmol/L Potassium Level 3.7 3.5-5.1 mmol/L Chloride Level 109 98-107 mmol/L Carbon Dioxide Level 25 21-32 mmol/L Anion Gap 6.0 3-11 mmol/L Blood Urea Nitrogen 22 7-18 mg/dl Creatinine 0.81 0.60-1.20 mg/dl Est Creatinine Clear Calc Drug Dose 38.6 ml/min Estimated GFR () 75.7 Estimated GFR (Non- 65.3 BUN/Creatinine Ratio 27.1 10-20 Random Glucose 81 70-99 mg/dl Calcium Level 8.8 8.5-10.1 mg/dl
--- NOTE | 2017-05-07 18:47 | Discharge Summary ---
Discharge Summary Date of Service May 07, 2017. Discharge Summary Admission Date: May 04, 2017 at 18:24 Discharge Date: May 07, 2017 Discharge Disposition: Home Principal Diagnosis: ATAXIA/UNSTEADY GAIT Secondary Diagnoses/Problems: (1) Bladder tumor Permanent Comment: Resected in Jun 2016 but recent surveillance cystoscopy with small recurrent tumors Status: Chronic (2) BRIANNA (generalized anxiety disorder) Status: Chronic (3) HTN (hypertension) Status: Chronic Procedures: CT HEAD: Senescent changes as above with no hemorrhage, mass effect, or evidence of acute territorial ischemia by CT criteria. CAROTID US: 1. There is no sonographic evidence of hemodynamically significant stenosis in the right or left carotid arterial system. 2. Antegrade flow is shown in the vertebral arteries. CXR: No acute process. Mild emphysematous change. BRAIN MRI: Senescent changes as above with no acute intracranial abnormality. Consultations: NEUROLOGY Medication Reconciliation Changed Medications: Lorazepam (Ativan) 0.5 Mg Tab 0.5 MG PO HS PRN for Anxiety/Insomnia, #10 TAB (Changed from: BID) Continued Medications: Docusate Sodium (Docusate Sodium) 100 Mg Cap 1 CAP PO BID PRN for Constipation for 30 Days, #60 CAP Losartan Potassium (Cozaar) 100 Mg Tab 100 MG PO QAM, TAB Metoprolol Succ (Toprol Xl) (Toprol-Xl) 50 Mg Tabcr 50 MG PO QAM, #30 TAB Admission Information HPI (per Admitting provider): This is a 86yo F with a PMH of HTN, anxiety and bladder cancer (s/p complete [place] [facility] [place]) who presents with an unsteady gait x 2 days. Patient was diagnosed with a left trigone tumor with hydroureter in 2015, which was resected in 05/14 and again in 07/16. [address] Dr. Rizvi' urology note, patient had a surveillance cystoscopy this past Tuesday (05/02/17) that showed 3-4 small recurrent tumors. Has agreed to move forward with biopsy and fulguration of tumors with Dr. Rizvi. Since finding out the results of the cystoscopy, patient endorses increased anxiety over the results. Is prescribed 0.5mg ativan BID for anxiety but states that she has only been taking it before bed, which she has for years. Yesterday, patient started to feel "unsteady" while walking and noticed herself leaning to the left. States that she required her 's help ambulating yesterday and today in order to avoid falling. Endorses associated lightheadedness but denies headache, facial droop, difficulty with speech, weakness in extremities. Denies personal history of CVA or heart disease. Physical Exam (per Admitting): General Appearance: no apparent distress, + mild distress (anxious appearing ) Head: normocephalic, atraumatic Eyes: normal inspection, PERRL, sclerae normal ENT: normal ENT inspection, TMs normal (Ceruman impaction of L ear. R TM normal.), pharynx normal Neck: supple, thyroid normal, trachea midline Respiratory/Chest: chest non-tender, lungs clear, normal breath sounds, no respiratory distress, no accessory muscle use Cardiovascular: regular rate, rhythm, no murmur Abdomen/GI: non tender, soft (some distention but non-tender), no organomegaly Back: normal inspection Extremities/Musculoskelatal: normal inspection, no calf tenderness, no pedal edema, normal range of motion Neurologic/Psych: ec teacher II-XII nml as tested, no motor/sensory deficits (Full ROM of all 4 extremities, 5/5 NISHA, normal [id number] and rapid alternating movements ), alert, normal mood/affect, oriented x 3, + abnormal gait (Left leaning and unsteady ) Skin: normal color, warm/dry Hospital Course This is a 86yo F with a PMH of HTN, anxiety and bladder cancer (s/[place] [facility] [place] who presents with an unsteady gait x 2 days. Ataxic gait: Left leaning, unsteadiness x [address] head negative MRI head unremarkable orthostatics carotid doppler unremarkable vitamin b12 normal currently stable appreciate neuro inputs pt/ot recommends rehab plan to go home first and then to rehab Bladder cancer: As pr h and P"S/p complete resection @ [facility] [place] Recent surveillance cysto (05/02/17) with Dr. Rizvi revealed 3-4 small recurrent tumors Planning on a biopsy with fulguration as well as staging CT scan" followup with urology HTN: on home dose metoprolol and losartan Clonidine 0.1mg Q8 PRN for SBP > 170 f/u with pcp BRIANNA: at admission Held home dose ativan in setting of ataxia, unsteady gait not sleeping and taking Ativan for very long time will restart Ativan 0.5mg q hs prn. f/u with pcp discharged home with plan for rehab Total time spent on discharge = 35MINUTES This includes examination of the patient, discharge planning, medication reconciliation, and communication with other providers. Discharge Instructions Please take this sheet to every appointment for the next month Discharge Instructions Date of Service May 07, 2017. Admission Reason for Admission: Ataxic Gait, Lightheadedness Discharge Discharge Diagnosis / Problem: ataxia, dizzy Discharge Goals Goal(s): Decrease discomfort, Improve function Activity Recommendations Activity Limitations: resume your previous activity (as tolerated) . Instructions / Follow-Up Instructions / Follow-Up FOLLOWUP WITH FAMILY DOCTOR Tonia Zuñiga ON Apr AT 12:45PM( IF NOT GOING TO REHAB. IF GOING TO REHAB FOLLOW WITH FAMILY DOCTOR WITHIN A WEEK OF DISCHARGE FROM REHAB) ADVISE FOR REHAB Current Hospital Diet Patient's current hospital diet: AHA Diet (Heart Healthy), Low Lactose Diet Discharge Diet Recommended Diet: AHA Diet (Heart Healthy), Low Lactose Diet (SOFT DIET. ASPIRATION PRECAUTIONS) Pending Studies Studies pending at discharge: no Laboratory Results Hemoglobin A1c Test 05/04/17 15:40 Range/Units Estimated Average Glucose 117 mg/dl Hemoglobin A1c 5.7 H 4.5-5.6 % Lipid Panel Test 05/05/17 07:38 Range/Units Triglycerides Level 56 0-150 mg/dl Cholesterol Level 177 0-200 mg/dl HDL Cholesterol 70 mg/dl Cholesterol/HDL Ratio 2.5 LDL Cholesterol, Calculated 96 mg/dl Medical Emergencies . Who to Call and When: Medical Emergencies: If at any time you feel your situation is an emergency, please call 911 immediately. . Non-Emergent Contact Non-Emergency issues call your: Primary Care Provider . . "Provider Documentation" section prepared by Austyn Headley. . VTE Core Measure Inpt VTE Proph given/why not?: SCD's
--- NOTE | 2017-05-11 07:48 | EDITING REQUIRED CODING QUERY ---
CODING QUERY To promote full compliance with coding requirements relating to patient care, provider participation is requested in all cases of primary special education teacher uncertainty. Please assist us with the question(s) below: Coding Question(s): Patient admitted with unsteady gait starting 2 days prior to adm. Please document the etiology of the unsteady gait if suspected or known. Thanks for your help! Ramesh Rivera [employer] [facility] Physician's Response(s): Deconditioning Dehydration Benzodiazepines? Principal Diagnosis: "_that condition established after study, to be chiefly responsible for occasioning the admission of the patient to the hospital for care." Co-Existing Principal Diagnosis: "_when two or more diagnoses equally meet the criteria for principal diagnosis as determined by the circumstances of admission, diagnostic work up, and/or therapy provided, and the Alphabetic Index, Tabular List, or another coding guideline does not provide sequencing direction, any one of the diagnoses may be sequenced first." "When the physician has documented what appears to be a current diagnosis in the body of the record, but has not included the diagnosis in the final diagnostic statement, the physician should be asked whether the diagnosis should be added." (Source Coding [facility] 2 QTR90. p3-4)
== END 2017-05-07 15:20 | disposition home or self-care (01) | DRG 93 ==
LOC: C.EDB 15:22 → C.2T 18:24 → ENRESERV 18:48 → EDBEDREQ 05-05 11:06 → ENRESERV 05-05 11:30 → C.4E 05-05 13:19
PROVIDERS: ADMIT Internal Medicine; ATTEND Internal Medicine
DX: R26.81 Unsteadiness on feet (principal); T42.4X5A Adverse effect of benzodiazepines, initial encounter; F41.1 Generalized anxiety disorder; E86.0 Dehydration; R29.715 NIHSS score 15; I10 Essential (primary) hypertension; C67.9 Malignant neoplasm of bladder, unspecified; Z88.0 Allergy status to penicillin; Z88.2 Allergy status to sulfonamides; Y92.019 Unspecified place in single-family (private) house as the place of occurrence of the external cause